=== PATIENT | male | born 1995 | race Two or more races ===

== ENCOUNTER 2021-05-16 12:39 | Emergency (ER) | payer OTHER ==
[~2021-05-16] VITALS: Ht 180.3 cm; Wt 72.6 kg
[2021-05-16 12:48] VITALS: BP 127/67
--- NOTE | 2021-05-16 12:51 | NUR ---
the patient had a fall - 2 weeks ago; left elbow pain - not getting better
== END 2021-05-16 15:15 | disposition home or self-care (01) ==
LOC: ER 12:43
DX: S52.124A Nondisplaced fracture of head of right radius, initial encounter for closed fracture (principal); S52.134A Nondisplaced fracture of neck of right radius, initial encounter for closed fracture; S50.01XA Contusion of right elbow, initial encounter; S60.211A Contusion of right wrist, initial encounter; W18.39XA Other fall on same level, initial encounter; Y93.89 Activity, other specified; Y92.89 Other specified places as the place of occurrence of the external cause; Y99.8 Other external cause status
CPT/HCPCS: 73070-TC; 73080-TC; 73110